=== PATIENT | female | born 1945 | race Caucasian/White ===

== ENCOUNTER → 2017-01-28 | Outpatient (CLI) | payer MEDICARE, OTHER ==
--- NOTE | 2017-01-29 08:00 | RSPPFT ---
DATE OF PROCEDURE: 01/28/17 COMMENTS: VOLUMES DYNAMIC: FVC mildly reduced; FEV1 low normal. STATIC: FRC mildly reduced, TLC and RV low normal. FLOWS: FEV1% normal; FEF 25-75 mildly reduced. DIFFUSION: Mildly reduced. FLOW VOLUME LOOP: Terminal airflow obstruction. IMPRESSION: Probable combined mild obstructive and mild restrictive ventilatory defect with a mild reduction in diffusion. Clinical correlation is required.
== END ==
LOC: PHRSP 09:47
PROVIDERS: ATTEND Internal Medicine
DX: J44.9 Chronic obstructive pulmonary disease, unspecified (principal)
CPT/HCPCS: 94060; 94726; 94729

== ENCOUNTER 2018-02-19 16:07 | Emergency (ER) | payer MEDICARE, OTHER ==
[~2018-02-19] VITALS: Ht 167.6 cm; Wt 91.0 kg
[2018-02-19 16:10] VITALS: BP 177/81; PULSE 61; RESP 16; TEMP 97.8; O2SAT 98
[2018-02-19] MEDS ORDERED: ATEN25TA PO (16:23)
[2018-02-19] MEDS ORDERED: LOSA50TA PO (16:23)
[2018-02-19] MEDS ORDERED: ISOS60TA PO (16:23)
[2018-02-19] MEDS ORDERED: PLAV75TA29 PO (16:24)
[2018-02-19] MEDS ORDERED: MAGN400T2 PO (16:24)
[2018-02-19] MEDS ORDERED: ALPR.5 PO (16:24)
[2018-02-19] MEDS ORDERED: ASPI81CH6 CHEW (16:24)
[2018-02-19] MEDS ORDERED: CALC1TAB87 PO (16:24)
[2018-02-19] MEDS ORDERED: BIOT10TA PO (16:24)
[2018-02-19] MEDS ORDERED: VITA1000 PO (16:24)
[2018-02-19] MEDS ORDERED: NITR0.4D T-DERMAL (16:24)
[2018-02-19] MEDS ORDERED: NITR400A3 SL (16:24)
[2018-02-19] MEDS ORDERED: NEXI40CA PO (16:24)
[2018-02-19] MEDS ORDERED: MULTTAB67 PO (16:24)
[2018-02-19] MEDS ORDERED: ATOR20TA15 PO (16:24)
[2018-02-19] MEDS ORDERED: COQ-100C5 PO (16:24)
[2018-02-19] MEDS ORDERED: PROPARACAINE HCL 0.5% OPHT SOLN 15 ML BTL RIGHT EYE ONE (16:45)
[2018-02-19] MEDS ORDERED: FLUORESCEIN SOD 1 MG STRIP RIGHT EYE ONE (16:45)
[2018-02-19] MEDS ORDERED: ERYTOIN10 RIGHT EYE (16:56)
--- NOTE | 2018-02-19 16:56 | PD ---
HPI Chief Complaint: Eye Problems/Injury Time Seen by Provider: 16:26 Travel History International Travel<30 days: No Contact w/Intl Traveler<30days: No Traveled to known affect area: No History of Present Illness HPI Patient is a 72 year old female who comes in complaining of right eye pain. She says he had cataract surgery on this eye 1 month ago and has been having pain since then. She went to see her eye doctor a week ago and was told everything was fine. She says the pain has been getting worse and has become intolerable, so she came in. She denies any decreased vision. She denies any headache, fever or chills. Severity is moderate. PFSH Past Medical History Anxiety: Yes Cardiac Catheterization: Yes High Cholesterol: Yes Chest Pain: Yes Coronary Artery Disease: Yes Diminished Hearing: No GERD: Yes Genitourinary: Yes (RENAL STENOSIS AND ) Hypertension: Yes ?: Not Menopausal: Yes Past Surgical History Coronary Artery Bypass Graft: Yes (X3) Coronary Stent: Yes (X3) Social History Alcohol Use: No Tobacco Use: No Substance Use: No Allergies-Medications (Allergen,Severity, Reaction): Coded Allergies: Sulfa (Sulfonamide Antibiotics) (Unverified Allergy, Severe, KIDNEY PROBLEMS, 02/19/18) codeine (Unverified Allergy, Severe, HALLUCINATION, 02/19/18) Penicillins (Verified Allergy, Unknown, 02/19/18) Reported Meds & Prescriptions Reported Meds & Active Scripts Active Reported Calcium 600 with Vitamin D (Calcium Carbonate-Cholecalciferol) 600-400 mg-Unit Tab 1 Tab PO DAILY Magnesium Oxide 400 Mg Tab 400 Mg PO DAILY Xanax (Alprazolam) 0.5 Mg Tab 0.5 Mg PO Q6H PRN Multiple Vitamin 1 Tab 1 Tab PO DAILY Coq-10 Tr (Coenzyme Q10 (Ubidecarenone)) 100 Mg Cap 100 Mg PO DAILY Biotin 10 Mg Tab 10 Mg PO DAILY Vitamin D-1000 (Cholecalciferol) 1,000 Unit Tab 50,000 Units PO MONTHLY Nitromist Lingual [place] (Nitroglycerin) 400 Mcg/Act [place] 1 [place] SL DIRECTED PRN ONE SPRAY NEEDED FOR CHEST PAIN, MAY REPEAT EVERY FIVE MINUTES FOR A TOTAL OF 3 DOSES OR CALL 911 IF NO RELIEF Nitro-Dur Patch 24 HR (Nitroglycerin) 0.4 Mg/Hr Patch 0.4 Mg T-DERMAL DIRECTED Aspirin Low Dose (Aspirin) 81 Mg Chew 81 Mg CHEW DAILY Atorvastatin (Atorvastatin Calcium) 20 Mg Tab 20 Mg PO HS Plavix (Clopidogrel Bisulfate) 75 Mg Tab 75 Mg PO DAILY Nexium (Esomeprazole DR) 40 Mg Capdr 40 Mg PO DAILY Isosorbide Mononitrate ER (Isosorbide Mononitrate) 60 Mg Tab 60 Mg PO BID Atenolol 25 Mg Tab 25 Mg PO DAILY Losartan (Losartan Potassium) 50 Mg Tab 50 Mg PO DAILY Review of Systems General / Constitutional: No: Fever, Chills Eyes: Positive: Foreign Body Sensation, Pain, No: Blurred Vision HENT: No: Headaches, Vertigo Cardiovascular: No: Chest Pain or Discomfort Respiratory: No: Shortness of Breath Gastrointestinal: No: Vomiting Musculoskeletal: No: Myalgias, Edema Skin: No Rash, No Change in Pigmentation Neurologic: No: Weakness, Dizziness, Syncope Physical Exam Narrative GENERAL: Awake and alert, no acute distress. SKIN: Focused skin assessment warm/dry. HEAD: Atraumatic. Normocephalic. EYES: Pupils equal and round. No scleral icterus. Extraocular movements intact. Right conjunctiva injected. ENT: Mucous membranes pink and moist. CARDIOVASCULAR: Regular rate and rhythm. No murmur appreciated. RESPIRATORY: No accessory muscle use. Clear to auscultation. Breath sounds equal bilaterally. MUSCULOSKELETAL: No obvious deformities. No clubbing. No cyanosis. No edema. NEUROLOGICAL: Awake and alert. No obvious cranial nerve deficits. Motor grossly within normal limits. Normal speech. PSYCHIATRIC: Appropriate mood and affect; insight and judgment normal. Data Data Last Documented VS Vital Signs Date Time Temp Pulse Resp B/P (MAP) Pulse Ox O2 Delivery O2 Flow Rate FiO2 02/19/18 16:10 97.8 61 16 177/81 (113) 98 Orders Orders Fluorescein Strip (Fvjak-X-Fxaoha A.T.) (02/19/18 16:45) Proparacaine 0.5% Opth Soln (Alcaine 0.5 (02/19/18 16:45) MDM Medical Decision Making Medical Screen Exam Complete: Yes Emergency Medical Condition: Yes Medical Record Reviewed: Yes Differential Diagnosis Corneal abrasion versus glaucoma versus conjunctivitis Narrative Course Patient is a 72-year-old female who comes in complaining of right eye pain since having cataract surgery a month ago. She did see her raise drill operator a week ago and was told that her pressures were fine. Wood's lamp exam performed shows an abrasion to the 6:00 area of the right cornea. She will be discharged with prescription for erythromycin ointment. She is advised follow-up with her raise drill operator Wednesday. Advised to return to the ED as needed for any worsening symptoms. Diagnosis Primary Impression: Corneal abrasion Qualified Codes: S05.01XA - Injury of conjunctiva and corneal abrasion without foreign body, right eye, initial encounter Patient Instructions: Corneal Abrasion (ED), General Instructions Additional Instructions: Use the erythromycin ointment as directed. Follow-up with your raise drill operator. Return to the ED as needed for any worsening symptoms. Scripts Erythromycin Opth Oint (Erythromycin Opth Oint) 5 Mg/Gm Oint 1 APPLIC RIGHT EYE QID for Infection for 7 Days, #1 TUBE 0 Refills Prov: Enedina Cornell MD 02/19/18 Disposition: DISCHARGE HOME Condition: Stable Enedina Cornell MD February 19, 2018 16:56
== END 2018-02-19 17:08 | disposition home or self-care (01) ==
LOC: PHED 16:07
DX: S05.01XA Injury of conjunctiva and corneal abrasion without foreign body, right eye, initial encounter (principal); E78.00 Pure hypercholesterolemia, unspecified; K21.9 Gastro-esophageal reflux disease without esophagitis; I10 Essential (primary) hypertension; Z95.5 Presence of coronary angioplasty implant and graft; X58.XXXA Exposure to other specified factors, initial encounter
CPT/HCPCS: 99283